=== PATIENT | male | born 1995 | race Caucasian/White ===

== ENCOUNTER 2017-10-21 03:37 | Emergency (ER) | payer BC ==
[~2017-10-21] VITALS: Ht 175.3 cm; Wt 75.0 kg
[2017-10-21 03:42] VITALS: BP 129/68; PULSE 79; RESP 16; TEMP 98.1; O2SAT 100
--- NOTE | 2017-10-21 05:12 | PD ---
HPI Chief Complaint: Bite or Sting Time Seen by Provider: 05:06 Travel History International Travel<30 days: No Contact w/Intl Traveler<30days: No Traveled to known affect area: No History of Present Illness HPI 22-year-old male presents for evaluation after dog bite. The patient reports that he was drinking alcohol and walking on the street when a homeless man's dog bit him on the right side. He now has a wound on the right side which is mildly painful. He was unable to exchange contact information with a homeless man and therefore the dog is lost to follow-up. The patient's last tetanus vaccination was within 5 years. [facility] Past Medical History Medical History: Denies Significant Hx Past Surgical History Other Surgery: Yes (R. ACL ) Social History Alcohol Use: Yes Tobacco Use: No Substance Use: No Allergies-Medications (Allergen,Severity, Reaction): Coded Allergies: No Known Allergies (Unverified , 10/21/17) Reported Meds & Prescriptions Reported Meds & Active Scripts Active Augmentin (Amoxicillin-Clavulanate) 875-125 Mg Tab 1 Tab PO BID 7 Days Review of Systems Musculoskeletal: Positive: Pain Skin: Positive Other (Pain, dog bite, mild bleeding) Neurologic: No: Paresthesia Physical Exam Narrative GENERAL: Well-developed well-nourished male in no acute distress SKIN: Warm and dry. Superficial abrasion/puncture wounds to the anterior right thigh. CARDIOVASCULAR: Regular rate and rhythm. No murmur appreciated. RESPIRATORY: No accessory muscle use. Clear to auscultation. Breath sounds equal bilaterally. MUSCULOSKELETAL: Skin as noted above. Full range of motion of the right leg. Distal sensation and pulses are preserved. NEUROLOGICAL: Awake and alert. No obvious cranial nerve deficits. Motor grossly within normal limits. Normal speech. Data Data Last Documented VS Vital Signs Date Time Temp Pulse Resp B/P (MAP) Pulse Ox O2 Delivery O2 Flow Rate FiO2 10/21/17 05:49 83 18 132/76 (94) 100 Room Air 10/21/17 03:42 98.1 Orders Orders Rabies Immune Globulin Inj (Hyperrab S/D (10/21/17 05:15) Rabies Vaccine Human Cell Inj (Imovax In (10/21/17 05:15) Amoxicil-Clavulanate (Augmentin) (10/21/17 05:15) Femur (Ap & Lat/2vws) (10/21/17 ) Wound Care (10/21/17 05:06) MDM Medical Decision Making Medical Screen Exam Complete: Yes Emergency Medical Condition: Yes Medical Record Reviewed: Yes Differential Diagnosis Dog bite, puncture wound, retained foreign body Narrative Course X-ray will be obtained to rule out radiopaque foreign body. Local wound care provided. Augmentin will be administered. Given the nature of the dog who has been lost to follow-up, homeless nature, rabies series will be initiated, first rabies vaccination provided today as well as rabies immunoglobulin. The patient reports that he will be traveling quite frequently over the next few weeks and lives in [place]. He understands to follow-up at the local health department or emergency room in the county that he is in for rabies vaccination series on day 3, 7, 14. Diagnosis Primary Impression: Dog bite Additional Instructions: As discussed, obtain rabies vaccination on , October 24, Saturday, October 28 , Saturday, November 04. Take the antibiotic as prescribed. Wash the wounds twice a day with soap and water and apply antibiotic cream and clean bandages. Watch for signs of infection such as increasing redness around the wound, red streaks up the leg, fevers. Med/Other Pt SpecificInfo: Prescription(s) given, Wound Care Scripts Amoxicillin-Clavulanate (Augmentin) 875-125 Mg Tab 1 TAB PO BID for Infection for 7 Days, #14 TAB 0 Refills Prov: Alexa Lowe DO 10/21/17 Disposition: 01 DISCHARGE HOME Condition: Stable Rusty Guerrero Oct 21, 2017 05:12
[2017-10-21] MEDS ORDERED: RABIES VACCINE HUMAN DIPL CELL 2.5 UNITS/ML SYRINGE IM ONE (05:15)
[2017-10-21] MEDS ORDERED: RABIES IMMUNE GLOBULIN INJ 1,500 UNITS/10 ML VIAL IM ONE (05:15)
[2017-10-21] MEDS ORDERED: AMOXICILLIN/CLAVULANATE K 875 MG TAB PO ONE (05:15)
[2017-10-21] MEDS ORDERED: AUGM875T3 PO (05:16)
[2017-10-21 05:49] VITALS: BP 132/76; PULSE 83; RESP 18; O2SAT 100
--- NOTE | 2017-10-21 06:21 | RADRPT ---
EXAM DATE/TIME: 10/21/2017 05:15 [facility] COMPARISON: No previous studies available for comparison. INDICATIONS : None penetrating uniform lacerations to lateral distal femur from a dog bite. MEDICAL HISTORY : None. SURGICAL HISTORY : None. ENCOUNTER: Initial ACUITY: 1 day PAIN SCORE: 3/10 LOCATION: Right femur FINDINGS: Two view examination of the right femur demonstrates no evidence of fracture or dislocation. Prior AC L repair. Bony mineralization is normal. The soft tissue structures are intact. No radiopaque foreig n body observed. CONCLUSION: No acute abnormality. Kilo Urbano Jr., MD on October 21, 2017 at 6:18 Board Certified Radiologist. This report was verified electronically.
== END 2017-10-21 06:36 | disposition home or self-care (01) ==
LOC: NEPD 03:37
DX: S30.871A Other superficial bite of abdominal wall, initial encounter (principal); Z29.14 Encounter for prophylactic rabies immune globulin; Z59.0 Homelessness; W54.0XXA Bitten by dog, initial encounter
CPT/HCPCS: 73552; 90375; 90471; 90675; 96372